=== PATIENT | female | born 1980 | race Caucasian/White ===

== ENCOUNTER → 2017-10-19 14:15 | Outpatient (CLI) | payer OTHER, SELFPAY ==
--- NOTE | 2017-10-19 14:17 | US_ITS ---
STUDY: THYROID ULTRASOUND REASON FOR EXAM: Female, 36 years old. Difficulty swallowing. Status post right thyroidectomy. TECHNIQUE: Ultrasound evaluation of the thyroid was performed with real-time and static sweet-scale imaging. COMPARISON: 09/18/2016 FINDINGS: RIGHT LOBE: The patient is status post resection of the right lobe of the thyroid. LEFT LOBE: The left lobe of the thyroid gland measures 3.5 x 1.2 x 0.7 cm. There is a homogeneous echotexture. There is a stable 3 mm well-defined nodule in the lower pole of the left lobe. There are no new nodules. ISTHMUS: The isthmus measures 0.1 cm. The regional lymph nodes are normal. US/Thyroid IMPRESSION: Status post right thyroidectomy. Stable subcentimeter well-defined nodule in the left lobe of the thyroid. No new or suspicious findings. Electronically Signed: Juve Shirley, at 23:41 EDT Tel , Service support ,
== END ==
PROVIDERS: Family Provider Nurse Practitioner Family; PCP Nurse Practitioner Family; Visit Provider Nurse Practitioner
DX: E89.0 Postprocedural hypothyroidism (principal)
CPT/HCPCS: 76536

== ENCOUNTER → 2018-01-11 08:03 | Outpatient (CLI) | payer OTHER, SELFPAY ==
--- NOTE | 2018-01-11 08:05 | RAD_ITS ---
STUDY: X-RAY - PELVIS AND LEFT HIP REASON FOR EXAM: Left hip pain for 2 months, no specific injury. TECHNIQUE: Radiological exam, hip, unilateral, with pelvis when performed; 2 or 3 views. COMPARISON: None. FINDINGS: Normal visualized soft tissue structures. Normal bilateral iliac wings, sacroiliac joints and visualized sacrum. There is a transitional lumbosacral junction. Normal bilateral superior and inferior pubic rami. 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 Normal bilateral ischial tuberosities. Normal visualized femoral head. Normal acetabulum. Normal hip joint. 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 Otherwise, normal x-ray examination of the pelvis and left hip. Electronically Signed: Drake Cabral MD at 10:54 EDT Tel , Service support ,
== END ==
PROVIDERS: Family Provider Nurse Practitioner Family; PCP Nurse Practitioner Family; Referring Provider Orthopaedic Surgery; Visit Provider Orthopaedic Surgery
DX: M25.552 Pain in left hip (principal)
CPT/HCPCS: 73502